=== PATIENT | female | born 1975 | race African-American/Black ===

== ENCOUNTER 2017-10-07 09:20 | Emergency (ER) | payer SELFPAY ==
[2017-10-07 09:26] VITALS: BP 128/73
--- NOTE | 2017-10-07 09:39 | ER Document Report ---
ED Blood Pressure Problem - General Mode of Arrival: Ambulatory Information source: Patient TRAVEL OUTSIDE OF THE [place] IN LAST 30 DAYS: No <MAIKEL SMITH - Last Filed: 10/07/17 09:42> <JASON BUTTS - Last Filed: 10/11/17 15:18> - General Chief Complaint: High Blood Pressure Stated Complaint: BLOOD PRESSURE ISSUES Time Seen by Provider: 10/07/17 09:31 Notes: Patient is a 41-year-old female with COPD and DM type II that presents to the emergency department today with complaints of elevated blood pressures. Patient states she was at a mental health appointment yesterday and her blood pressure was 153/111 and she was told "she should get checked out". Patient states [facility]. Patient has never been diagnosed with high blood pressure in the past. Patient mentions "every once in a while" she feels lightheaded. Patient denies any chest pain or shortness of breath. (MAIKEL SMITH) - Related Data Allergies/Adverse Reactions: doxycycline Allergy (Verified 10/07/17 09:29) Past Medical History - General Information source: Patient - Social History Smoking Status: Current Every Day Smoker Cigarette use (# per day): Yes Chew tobacco use (# tins/day): No Frequency of alcohol use: None Drug Abuse: None Lives with: Family Family History: Reviewed & Not Pertinent Patient has suicidal ideation: Yes Patient has homicidal ideation: No Pulmonary Medical History: Reports: Hx COPD Endocrine Medical History: Reports: Hx Diabetes Mellitus Type 2 Surgical Hx: Negative <MAIKEL SMITH - Last Filed: 10/07/17 09:42> Review of Systems - Review of Systems Constitutional: No symptoms reported EENT: No symptoms reported Cardiovascular: See HPI, Lightheaded, Other - Elevated blood pressures Respiratory: No symptoms reported Gastrointestinal: No symptoms reported Genitourinary: No symptoms reported Female Genitourinary: No symptoms reported Musculoskeletal: No symptoms reported Skin: No symptoms reported Hematologic/Lymphatic: No symptoms reported Neurological/Psychological: No symptoms reported -: Yes All other systems reviewed and negative <MAIKEL SMITH - Last Filed: 10/07/17 09:42> Physical Exam <MAIKEL SMITH - Last Filed: 10/07/17 09:42> <JASON BUTTS - Last Filed: 10/11/17 15:18> - Vital signs Vitals: Temp Pulse Resp BP Pulse Ox 98.4 F 75 17 128/73 H 98 10/07/17 09:25 10/07/17 09:25 10/07/17 09:25 10/07/17 09:25 10/07/17 09:25 - Notes Notes: Physical Exam: General: Alert, appears well. HEENT: Normocephalic. Atraumatic. PERRL. Extraocular movements intact. Oropharynx clear. Neck: Supple. Non-tender. Respiratory: No respiratory distress. Clear and equal breath sounds bilaterally. Cardiovascular: Regular rate and rhythm. Abdominal: Obese. Normal Inspection. Non-tender. No distension. Normal Bowel Sounds. Back: Non-tender. No deformity or step off. Extremities: Moves all four extremities. Upper extremities: Normal inspection. Normal ROM. Lower extremities: Normal inspection. No edema. Normal ROM. Neurological: Normal cognition. AAOx4. Normal speech. Psychological: Normal affect. Normal Mood. Skin: Warm. Dry. Normal color. (MAIKEL SMITH) Course <MAIKEL SMITH - Last Filed: 10/07/17 09:42> - EKG Interpretation by Ut EKG shows normal: Sinus rhythm Rate: Normal <JASON BUTTS - Last Filed: 10/11/17 15:18> - Re-evaluation Re-evalutation: 10/07/17 10:09 Patient well-appearing in no acute distress. Elevated glucose. She is unsure of the medication for her diabetes she normally takes but has not been taking it. Patient shows no signs of fevers illnesses her intermittent dizziness is likely due to her hyperglycemia. EKG shows no concerning acute findings. [facility], physical examination, blood draw, and likely will be placed on new diabetic oral medications. Return precautions provided (JASON BUTTS) - Vital Signs Vital signs: Temp Pulse Resp BP Pulse Ox 98.4 F 75 17 128/73 H 98 10/07/17 09:25 10/07/17 09:25 10/07/17 09:25 10/07/17 09:25 10/07/17 09:25 - Laboratory Laboratory results interpreted by me: 10/07/17 10:03 POC Glucose 422 H* - EKG Interpretation by Me Additional EKG results interpreted by me: 10/07/17 10:08 Normal intervals, normal axis, leads I/AVL suggestive of left ventricular hypertrophy (JASON BUTTS) Discharge <MAIKEL SMITH - Last Filed: 10/07/17 09:42> <JASON BUTTS - Last Filed: 10/11/17 15:18> - Discharge Clinical Impression: encouter for concerns of hypertension Condition: Good Disposition: HOME, SELF-CARE [facility] [NO [facility] MD] - Follow up in 3-5 days Scribe Attestation: 10/07/17 10:11 I personally performed the services described documentation, reviewed and edited the documentation which was dictated to describe my presence, and it accurately records my words and actions. 10/11/17 15:18 I personally performed the services described documentation, reviewed and edited the documentation which was dictated to describe my presence, and it accurately records my words and actions. (JASON BUTTS) Scribe Documentation - Scribe Written by Jim:: Jim Sorenson, 10/07/2017 [id number] acting as scribe for :: Bob <MAIKEL SMITH - Last Filed: 10/07/17 09:42>
--- NOTE | 2017-10-07 22:48 | EKG REPORT ---
SEVERITY:- ABNORMAL ECG - SINUS RHYTHM LEFT VENTRICULAR HYPERTROPHY : Confirmed by: Don Kong 07-Oct-2017 22:47:44
== END 2017-10-07 10:17 | disposition home or self-care (01) ==
LOC: ER 09:20
DX: R03.0 Elevated blood-pressure reading, without diagnosis of hypertension (principal); R42 Dizziness and giddiness; E66.9 Obesity, unspecified; J44.9 Chronic obstructive pulmonary disease, unspecified; E11.9 Type 2 diabetes mellitus without complications; Z59.0 Homelessness
CPT/HCPCS: 82962; 93005; 93010; 99284

== ENCOUNTER 2017-10-24 23:54 | Emergency (ER) | payer SELFPAY ==
[2017-10-25 00:14] VITALS: BP 130/73
--- NOTE | 2017-10-25 01:10 | ER Document Report ---
ED General - General Chief Complaint: Leg Pain Stated Complaint: BODY PAIN Time Seen by Provider: 10/25/17 00:47 Mode of Arrival: Ambulatory Information source: Patient Notes: 41-year-old female presented ED for complaint of bilateral leg pain and fatigue after walking for 6 hours today canvassing in [place]. She states she just overdid it and she is fatigued. She states her legs are hurting and it hurts to move. She states she drinks a lot of water every day but today she is just more tired than usual. She states she lives at the [employer] and they take them to campus areas for 6 hours a day and she thinks she walked too fast and to much today. TRAVEL OUTSIDE OF THE [place] IN LAST 30 DAYS: No - HPI Onset: This evening Onset/Duration: Gradual Quality of pain: Achy Severity: Moderate Pain Level: 3 Associated symptoms: Body/muscle aches, Other - And fatigue from walking too much today Exacerbated by: Movement, Walking Relieved by: Denies Similar symptoms previously: Yes Recently seen / treated by doctor: No - Related Data Allergies/Adverse Reactions: doxycycline Allergy (Verified 10/07/17 09:29) Past Medical History - General Information source: Patient - Social History Smoking Status: Current Every Day Smoker Cigarette use (# per day): Yes - 6 cigarettes a day Chew tobacco use (# tins/day): No Smoking Education Provided: Yes - 4 minutes Frequency of alcohol use: None Drug Abuse: None Occupation: [employer] [facility] Lives with: Other - [employer] Family History: Reviewed & Not Pertinent Patient has suicidal ideation: No Patient has homicidal ideation: No - Past Medical History Cardiac Medical History: Reports: Hx Hypercholesterolemia Pulmonary Medical History: Reports: Hx COPD EENT Medical History: Reports: None Neurological Medical History: Reports: None Endocrine Medical History: Reports: Hx Diabetes Mellitus Type 2 Renal/ Medical History: Reports: None Malignancy Medical History: Reports: None GI Medical History: Reports: None Musculoskeltal Medical History: Reports Hx Musculoskeletal Trauma Skin Medical History: Reports None Psychiatric Medical History: Reports: Hx Anxiety, Hx Bipolar Disorder, Hx Dementia, Hx Post Traumatic Stress Disorder Traumatic Medical History: Reports: None Infectious Medical History: Reports: None Past Surgical History: Reports: Hx Hysterectomy, Hx Tubal Ligation Review of Systems - Review of Systems Constitutional: No symptoms reported EENT: No symptoms reported Cardiovascular: No symptoms reported Respiratory: No symptoms reported Gastrointestinal: No symptoms reported Genitourinary: No symptoms reported Female Genitourinary: No symptoms reported Musculoskeletal: Muscle pain, Muscle stiffness Skin: No symptoms reported Hematologic/Lymphatic: No symptoms reported Neurological/Psychological: No symptoms reported -: Yes All other systems reviewed and negative Physical Exam - Vital signs Vitals: Temp Pulse Resp BP Pulse Ox 98.4 F 72 16 130/73 H 99 10/25/17 00:10/25/17 00:10/25/17 00:10/25/17 00:10/25/17 00:09 Interpretation: Normal - General General appearance: Appears well, Alert - HEENT Head: Normocephalic, Atraumatic Eyes: Normal Pupils: PERRL - Respiratory Respiratory status: No respiratory distress Chest status: Nontender Breath sounds: Normal Chest palpation: Normal - Cardiovascular Rhythm: Regular Heart sounds: Normal auscultation Murmur: No - Abdominal Inspection: Normal Distension: No distension Bowel sounds: Normal Tenderness: Nontender Organomegaly: No organomegaly - Back Back: Normal, Nontender - Extremities General upper extremity: Normal inspection, Nontender, Normal color, Normal ROM , Normal temperature General lower extremity: Normal inspection, Nontender, Normal color, Normal ROM , Normal temperature, Normal weight bearing. No: Cari's sign Hip: Tender Thigh: Tender Knee: Tender, Pain with ROM. No: Abrasion, Deformity, Dislocation, Drawer's test instability, Ecchymosis, Instability, Laceration, Laxity with valgus stress , Laxity with varus stress, Patellar tendon intact, Popliteal fossa tender, Tender joint line, Unable to bear weight Calf: Tender. No: Abrasion, Deformity, Ecchymosis, Instability, Laceration, Unable to bear weight Ankle: Tender. No: Abrasion, Deformity, Ecchymosis, Edema, Instability, Limited ROM, Positive Jarquin's test, Unable to bear weight Foot: Tender, No evidence of FB. No: Nontender, Abrasion, Deformity, Ecchymosis , Edema, Instability, Metatarsal compress. pain, Nail injury, Navicular tenderness, Puncture wound, Tender 5th metatarsal, Unable to bear weight - Neurological Neuro grossly intact: Yes Cognition: Normal Orientation: AAOx4 Varnell Coma Scale Eye Opening: Spontaneous You Coma Scale Verbal: Oriented You Coma Scale Motor: Obeys Commands You Coma Scale Total: 15 Speech: Normal Motor strength normal: LUE, RUE, LLE, RLE Sensory: Normal - Psychological Associated symptoms: Normal affect, Normal mood - Skin Skin Temperature: Warm Skin Moisture: Dry Skin Color: Normal Course - Re-evaluation Re-evalutation: 10/25/17 02:38 Urine was discussed with patient patient was instructed to increase her fluid intake, to drink at least 2 bottles of G2 Gatorade tomorrow to decrease her sugar intake. Patient was instructed to follow-up with her primary care at [facility]. Patient to stick to her diabetic diet. Patient to be sure she is well-hydrated when she does her canvasing. Patient is able to verbalize understanding of instructions and agreement with treatment plan. - Vital Signs Vital signs: Temp Pulse Resp BP Pulse Ox 98.4 F 72 16 130/73 H 99 10/25/17 00:09 10/25/17 00:09 10/25/17 00:09 10/25/17 00:09 10/25/17 00:09 - Laboratory Laboratory results interpreted by me: 10/25/17 01:10 Urine Glucose (UA) >=500 H Urine Ascorbic Acid 20 H Discharge - Discharge Clinical Impression: Leg pain Qualifiers: Laterality: right Qualified Code(s): M79.604 - Pain in right leg Condition: Stable Disposition: HOME, SELF-CARE Additional Instructions: Leg Pain, Nonspecific We did not find an obvious cause for your leg pain. There's no sign of blood clot, infection, or other serious disease. Possible causes of vague leg pain include muscle or joint inflammation, disc disease in the lower back, pressure on the nerves in the back, or reduced blood flow through the arteries of the leg. Rest the leg. Pain can be eased with an antiinflammatory pain medicine such as ibuprofen. If the pain involves a small area, a heating pad might help. Call the doctor or return if the leg becomes swollen, weak, discolored, or increasingly painful, or if you develop any other significant change in your health. Have a history of diabetes and your sugar is 305. Please be aware of your diabetic diet and eat the foods you have been instructed to eat. Please use your insulin as ordered. Please drink 8-10 glasses of water a day and more when you are out canvassing. You have instructed to drink at least 2 bottles of Gatorade G2 tomorrow due to your leg cramps and your blood sugar tonight. These call the [facility] tomorrow and schedule an appointment to follow-up for your diabetes. FOLLOW-UP CARE: If you have been referred to a physician for follow-up care, call the physician s office for an appointment as you were instructed or within the next two days. If you experience worsening or a significant change in your symptoms, notify the physician immediately or return to the Emergency Department at any time for re-evaluation. Forms: Elevated Blood Pressure, Return to Work Referrals: [facility] [Provider Group] - Follow up as needed
[2017-10-25 01:46] LABS: APPEARANCE,URINE CLEAR; BILIRUBIN,URINE NEGATIVE (NEGATIVE); COLOR,URINE STRAW; GLUCOSE, URINE >=500 mg/dL (NEGATIVE); KETONES,URINE NEGATIVE (NEGATIVE); LEUKOCYTE ESTERASE,URINE NEGATIVE (NEGATIVE); NITRITE,URINE NEGATIVE (NEGATIVE); PROTEIN,URINE NEGATIVE (NEGATIVE); UROBILINOGEN,URINE NEGATIVE mg/dL (<2.0)
[2017-10-25] MEDS ORDERED: IBUPROFEN 600 MG TABLET PO ONE (02:46)
== END 2017-10-25 02:51 | disposition home or self-care (01) ==
LOC: ER 23:54
DX: M79.1 Myalgia (principal); R53.83 Other fatigue; J44.9 Chronic obstructive pulmonary disease, unspecified; E11.9 Type 2 diabetes mellitus without complications; F17.210 Nicotine dependence, cigarettes, uncomplicated; Z71.6 Tobacco abuse counseling; Z88.1 Allergy status to other antibiotic agents
CPT/HCPCS: 81001; 82962; 99283; 99406

== ENCOUNTER 2018-07-31 16:51 | Emergency (ER) | payer SELFPAY ==
[2018-07-31 17:30] VITALS: BP 113/90
--- NOTE | 2018-07-31 17:49 | ER Document Report ---
ED Medical Screen (RME) - General Chief Complaint: Flank Pain Stated Complaint: FLANK PAIN Time Seen by Provider: 07/31/18 17:36 TRAVEL OUTSIDE OF THE [place] IN LAST 30 DAYS: No - HPI Notes: 07/31/18 17:44 Patient is a 42-year-old female with history of COPD and diabetes who presents complaining of left mid and left upper abdominal pain that is been ongoing for the past 2-3 days. Patient states that she was seen at a different ER in [place] and was told that she had an inflamed large intestine and has had continued pain, but is not sure exactly what is going on and wanted another evaluation. She still able to eat and drink, but does have a decreased p.o. intake. She is urinating normally. Last bowel movement was 2-3 days ago which is not uncommon for her. Patient states that she had a negative test and states that she does not want another one as she had a partial hysterectomy performed years ago. Denies FAJARDO, fever, neck pain, URI, CP, SOB, or rash. I have treated and performed a rapid initial assessment of this patient. A comprehensive ED assessment and evaluation of the patient, analysis of test results and completion of medical decision making process will be conducted by additional ED providers. I will defer any imaging to the next provider that can perform a more thorough evaluation in an exam room. PHYSICAL EXAMINATION: GENERAL: Well-appearing, well-nourished and in no acute distress. A&Ox4. Answers questions appropriately. LUNGS: Breath sounds clear to auscultation bilaterally and equal. No wheezes rales or rhonchi. HEART: Regular rate and rhythm without murmurs, rubs, gallops. ABDOMEN: Soft, nondistended abdomen. No guarding, no rebound. Normal bowel sounds present. No CVA tenderness bilaterally. + mid/left abd tenderness (cannot elicit thorough abd exam w/o table, however). Extremities: No cyanosis, clubbing, or edema b/l. NEUROLOGICAL: Normal speech, normal gait. PSYCH: Normal mood, normal affect. - Related Data Allergies/Adverse Reactions: doxycycline Allergy (Verified 07/31/18 16:54) Past Medical History - Past Medical History Cardiac Medical History: Reports: Hx Hypercholesterolemia Pulmonary Medical History: Reports: Hx COPD Endocrine Medical History: Reports: Hx Diabetes Mellitus Type 2 Renal/ Medical History: Denies: Hx Peritoneal Dialysis Musculoskeltal Medical History: Reports Hx Musculoskeletal Trauma Psychiatric Medical History: Reports: Hx Anxiety, Hx Bipolar Disorder, Hx Dementia, Hx Post Traumatic Stress Disorder Past Surgical History: Reports: Hx Hysterectomy, Hx Tubal Ligation Physical Exam - Vital signs Vitals: Temp Pulse Resp BP Pulse Ox 98.5 F 92 16 113/90 H 96 07/31/18 17:27 07/31/18 17:27 07/31/18 17:27 07/31/18 17:27 07/31/18 17:27 Course - Vital Signs Vital signs: Temp Pulse Resp BP Pulse Ox 98.5 F 92 16 113/90 H 96 07/31/18 17:27 07/31/18 17:27 07/31/18 17:27 07/31/18 17:27 07/31/18 17:27
[2018-07-31 18:48] LABS: APPEARANCE,URINE SLIGHTLY-CLOUDY; BILIRUBIN,URINE NEGATIVE (NEGATIVE); COLOR,URINE YELLOW; GLUCOSE, URINE >=500 mg/dL (NEGATIVE); KETONES,URINE NEGATIVE (NEGATIVE); LEUKOCYTE ESTERASE,URINE NEGATIVE (NEGATIVE); NITRITE,URINE NEGATIVE (NEGATIVE); PROTEIN,URINE NEGATIVE (NEGATIVE); URINE SPECIFIC GRAVITY 1.031; UROBILINOGEN,URINE NEGATIVE mg/dL (<2.0)
[2018-07-31 18:50] LABS: ABSOLUTE BASOPHILS # (AUTO) 0.1 10^3/uL (0.0-0.2); ABSOLUTE EOSINOPHILS # (AUTO) 0.1 10^3/uL (0.0-0.6); ABSOLUTE LYMPHOCYTES (AUTO) 2.2 10^3/uL (0.5-4.7); ABSOLUTE MONOCYTES (AUTO) 0.5 10^3/uL (0.1-1.4); ABSOLUTE NEUT (AUTO) 5.2 10^3/uL (1.7-8.2); BASOPHILS % (AUTO) 0.6 % (0-2); EOSINOPHILS % (AUTO) 0.8 % (0-6); HEMATOCRIT 43.2 % (36.0-47.0); LYMPHOCYTES % (AUTO) 27.9 % (13-45); MEAN CORPUSCULAR HEMOGLOBIN 31.3 pg (27.0-33.4); MEAN CORPUSCULAR HGB CONC 34.8 g/dL (32.0-36.0); MEAN CORPUSCULAR VOLUME 90 fl (80-97); MONOCYTES % (AUTO) 6.1 % (3-13); PLATELET COUNT 201 10^3/uL (150-450); RED BLOOD COUNT 4.81 10^6/uL (3.72-5.28); RED CELL DISTRIBUTION WIDTH 12.8 % (11.5-14.0); SEGMENTED NEUTROPHILS % (AUTO) 64.6 % (42-78); TOTAL CELLS COUNTED % (AUTO) 100 %
[2018-07-31 19:01] LABS: ALANINE AMINOTRANSFERASE 17 U/L (9-52); ALBUMIN 4.1 g/dL (3.5-5.0); ALKALINE PHOSPHATASE 113 U/L (38-126); ANION GAP 9 (5-19); ASPARTATE AMINO TRANSFERASE 11 U/L (14-36); BILIRUBIN,DIRECT 0.2 mg/dL (0.0-0.4); BILIRUBIN,TOTAL 0.3 mg/dL (0.2-1.3); BLOOD UREA NITROGEN 18 mg/dL (7-20); CARBON DIOXIDE 22 mmol/L (22-30); CHLORIDE 105 mmol/L (98-107); LIPASE 46.9 U/L (23-300); POTASSIUM 4.4 mmol/L (3.6-5.0); SODIUM 136.1 mmol/L (137-145); TOTAL PROTEIN 7.4 g/dL (6.3-8.2)
[2018-07-31 19:28] LABS: GLUCOSE 425 mg/dL (75-110)
[2018-07-31] MEDS ORDERED: INSULIN REG, HUMAN 100 UNIT/ML 3 ML VIAL (PYX) SUBCUT ONE (21:27)
--- NOTE | 2018-07-31 21:28 | ER Document Report ---
ED General - General Chief Complaint: Flank Pain Stated Complaint: FLANK PAIN Time Seen by Provider: 07/31/18 17:36 Notes: Patient is a 42-year-old female with a past medical history of diabetes, obesity, hypertension, not currently receiving therapy for any of these chronic medical problems who presents with 48 hours of abdominal pain, flank pain with associated diarrhea and nausea. Patient states that she was seen in the emergency room in [place], diagnosed with a colitis, started on ciprofloxacin and metronidazole but has not yet had resolution of her symptoms after taking 4 total doses. States that nothing seems to worsen her symptoms. Does describe the pain as a moderate to severe cramping, generalized abdominal discomfort. No history of similar symptoms in the past. Has not had melena, hematochezia or fever. Has been able to tolerate oral intake. TRAVEL OUTSIDE OF THE [place] IN LAST 30 DAYS: No - Related Data Allergies/Adverse Reactions: doxycycline Allergy (Verified 07/31/18 16:54) Past Medical History - General Information source: Patient - Social History Smoking Status: Never Smoker Frequency of alcohol use: None Drug Abuse: None Lives with: Family Family History: Reviewed & Not Pertinent Patient has suicidal ideation: No Patient has homicidal ideation: No - Past Medical History Cardiac Medical History: Reports: Hx Hypercholesterolemia Pulmonary Medical History: Reports: Hx COPD Endocrine Medical History: Reports: Hx Diabetes Mellitus Type 2 Renal/ Medical History: Denies: Hx Peritoneal Dialysis Musculoskeletal Medical History: Reports Hx Musculoskeletal Trauma Psychiatric Medical History: Reports: Hx Anxiety, Hx Bipolar Disorder, Hx Dementia, Hx Post Traumatic Stress Disorder Past Surgical History: Reports: Hx Hysterectomy, Hx Tubal Ligation Review of Systems - Review of Systems Notes: Constitutional: Negative for fever. HENT: Negative for sore throat. Eyes: Negative for visual changes. Cardiovascular: Negative for chest pain. Respiratory: Negative for shortness of breath. Gastrointestinal: Positive abdominal pain, diarrhea Genitourinary: Negative for dysuria. Musculoskeletal: Negative for back pain. Skin: Negative for rash. Neurological: Negative for headaches, weakness or numbness. 10 point ROS negative except as marked above and in HPI. Physical Exam - Vital signs Vitals: Temp Pulse Resp BP Pulse Ox 98.5 F 92 16 113/90 H 96 07/31/18 17:27 07/31/18 17:27 07/31/18 17:27 07/31/18 17:27 07/31/18 17:27 Interpretation: Normal Notes: PHYSICAL EXAMINATION: GENERAL: Well-appearing, well-nourished and in no acute distress. HEAD: Atraumatic, normocephalic. EYES: Pupils equal round and reactive to light, extraocular movements intact, sclera anicteric, conjunctiva are normal. ENT: nares patent, oropharynx clear without exudates. Moist mucous membranes. NECK: Normal range of motion, supple without lymphadenopathy LUNGS: Breath sounds clear to auscultation bilaterally and equal. No wheezes rales or rhonchi. HEART: Regular rate and rhythm without murmurs ABDOMEN: Soft, mild diffuse abdominal tenderness without localization, normoactive bowel sounds. No guarding, no rebound. No masses appreciated. EXTREMITIES: Normal range of motion, no pitting or edema. No cyanosis. NEUROLOGICAL: No focal neurological deficits. Moves all extremities spontaneously and on command. PSYCH: Normal mood, normal affect. SKIN: Warm, Dry, normal turgor, no rashes or lesions noted. Course - Re-evaluation Re-evalutation: 07/31/18 21:27 Patient presents with reports that she was diagnosed with a colitis of the large intestine 2 days ago, started on Cipro and Flagyl but has not had improvement. On exam patient is globally tender to the epigastric, left upper quadrant and left lower quadrant without rebound or guarding. Major the abdominal exam is otherwise very benign. Patient reports that she was told "I might have cancer" and is very concerned about this although her presentation would be inconsistent with this diagnosis. Labs unremarkable with exception of hyperglycemia and patient has a known history of diabetes, not currently on any treatment as she does not have primary care. Will obtain CT scan of the abdomen pelvis to further evaluate for consideration of the colitis versus mass lesion. I suspect the patient has simply not had enough time for antibiotics to treat for possible bacterial colitis versus she may actually have an autoimmune inflammatory bowel disease such as Crohn's or ulcerative colitis. 07/31/18 23:13 CT scan of the abdomen pelvis is unremarkable without any evidence of residual colitis or any other acute findings. I advised the patient to follow-up with her primary care doctor regarding control of her hyperglycemia. I have advised continued following of the previous for eScription's for antibiotics given that she did have demonstrated colitis on previous CT scan. At this time will discharge with return precautions and follow-up recommendations. Verbal discharge instructions given a the bedside and opportunity for questions given. Medication warnings reviewed. Patient is in agreement with this plan and has verbalized understanding of return precautions and the need for primary care follow-up in the next 24-72 hours. - Vital Signs Vital signs: Temp Pulse Resp BP Pulse Ox 98.5 F 92 16 113/90 H 96 07/31/18 17:27 07/31/18 17:27 07/31/18 17:27 07/31/18 17:27 07/31/18 17:27 - Laboratory Result Diagrams: 07/31/18 18:00 07/31/18 18:00 Laboratory results interpreted by me: 07/31/18 07/31/18 18:00 18:00 Sodium 136.1 L Glucose 425 H* AST 11 L Urine Glucose (UA) >=500 H - Diagnostic Test Radiology reviewed: Reports reviewed Discharge - Discharge Clinical Impression: Nausea, Generalized abdominal pain Hyperglycemia due to type 2 diabetes mellitus Qualifiers: Diabetes mellitus roasterman insulin use: unspecified roasterman insulin use status Qualified Code(s): E11.65 - Type 2 diabetes mellitus with hyperglycemia Condition: Good Disposition: HOME, SELF-CARE Additional Instructions: Your CT scan does not show any ongoing inflammation or evidence of cancer. Please continue to take the antibiotics that were previously prescribed. You have been given Levsin to use as needed for abdominal cramping and spasming. Zofran as needed for nausea and vomiting. You need to follow-up with your primary care doctor regarding her high blood sugars. Return if you develop fever of greater than 100.4 F, persistent vomiting, worsening pain, began passing blood in your stool, pass out or have any other symptoms that are worrisome to you. Prescriptions: Hyoscyamine Sulfate [Levsin 0.125 Tablet] 0.125 mg PO TID PRN #30 tablet PRN Reason:
--- NOTE | 2018-07-31 21:46 | RADIOLOGY REPORT (SQ) ---
EXAM DESCRIPTION: CT ABDOMEN PELVIS WITH IV CONTRAST COMPLETED DATE/TME: 07/31/2018 20:30 CLINICAL HISTORY: 42 years, Female, ab pain, ?colitis COMPARISON: None. TECHNIQUE: Contrast enhanced CT of the abdomen/pelvis was performed. Coronal and sagittal reformations were created. Images stored on PACS. All CT scanners at this facility use dose modulation, iterative reconstruction, and/or weight based dosing when appropriate to reduce radiation dose to as low as reasonably achievable (ALARA). [facility]: Dose Right [facility]: CareDose [facility]: Dose Right [facility]: Teradose 4D [facility]: [employer] LIMITATIONS: None. FINDINGS: Limited evaluation of the lower chest reveals clear lung bases. Visualized portions of the liver, spleen, pancreas, gallbladder, and both adrenal glands appear normal. Both kidneys enhance symmetrically. There is no hydronephrosis or hydroureter. Urinary bladder is well distended and shows no suspicious abnormality. Uterus shows no suspicious abnormality. A small corpus luteal cyst is noted about the left ovary. In addition, there is a functional cyst within the right ovary measuring 2.2 x 2.1 cm in size. Both are benign without follow-up necessary. The small and large bowel appear normal in caliber without areas of focal wall thickening. There is no evidence of bowel obstruction. The appendix is normal in caliber though there is likely appendicolith within the appendiceal tip. Vascular structures opacify with contrast normally. No suspicious lymphadenopathy or drainable fluid collections are appreciated. Bone windows show no destructive osseous lesions. IMPRESSION: No acute abnormality within the abdomen or pelvis. TECHNICAL DOCUMENTATION: Quality ID # [id number]: Final reports with documentation of one or more dose reduction techniques (e.g., Automated exposure control, adjustment of the mA and/or kV according to patient size, use of iterative reconstruction technique) copyright 2010 [employer]- All Rights Reserved
[2018-07-31] MEDS ORDERED: HYOSCYAMINE SULFATE 0.125 MG TABLET PO ONE (23:14)
[2018-07-31] MEDS ORDERED: ONDANSETRON ODT 4 MG TAB (6 TAB/ER DISP) PO PRN (23:14)
== END 2018-07-31 23:26 | disposition home or self-care (01) ==
LOC: ER 16:51
DX: R10.84 Generalized abdominal pain (principal); E11.65 Type 2 diabetes mellitus with hyperglycemia; R11.0 Nausea; R19.7 Diarrhea, unspecified; I10 Essential (primary) hypertension; E66.9 Obesity, unspecified; J44.9 Chronic obstructive pulmonary disease, unspecified
CPT/HCPCS: 99284; 36415; 87086; 83690; 85025; 80053; 81001; 74177; J1815

== ENCOUNTER 2018-10-02 11:15 | Emergency (ER) | payer SELFPAY ==
--- NOTE | 2018-10-02 11:42 | ER Document Report ---
ED Medical Screen (RME) - General Chief Complaint: Eye Pain Stated Complaint: EYE SIGHT ISSUE Time Seen by Provider: 10/02/18 11:34 Mode of Arrival: Ambulatory Information source: Patient Notes: Patient is 42-year-old female with a history of genital herpes who presents to the ER today because she is concerned that she may have got herpes in her eye today. Patient was masturbating this morning and was not getting any "satisfaction" so she stopped and then without thinking rubbed her left eye. Patient is concerned because she started having burning and irritation to the left eye afterwards. As an aside patient is also concerned about her sugar today, she is a diabetic and states that she does not have any insurance so she has been buying insulin [id number] and giving herself 50 units of Humulin in and 1 dose daily, 1 time a day. She has not done this in about 1 week. She has no idea if this is the correct amount of insulin she should be giving herself. TRAVEL OUTSIDE OF THE [place] IN LAST 30 DAYS: No - Related Data Allergies/Adverse Reactions: doxycycline Allergy (Verified 07/31/18 16:54) Past Medical History - General Information source: Patient - Past Medical History Cardiac Medical History: Reports: Hx Hypercholesterolemia Pulmonary Medical History: Reports: Hx COPD Endocrine Medical History: Reports: Hx Diabetes Mellitus Type 2 Renal/ Medical History: Denies: Hx Peritoneal Dialysis Musculoskeltal Medical History: Reports Hx Musculoskeletal Trauma Psychiatric Medical History: Reports: Hx Anxiety, Hx Bipolar Disorder, Hx Dementia, Hx Post Traumatic Stress Disorder Past Surgical History: Reports: Hx Hysterectomy, Hx Tubal Ligation Review of Systems - Review of Systems EENT: See HPI Female Genitourinary: See HPI Physical Exam - Vital signs Vitals: Temp Pulse Resp BP Pulse Ox 97.8 F 81 16 151/64 H 99 10/02/18 11:23 10/02/18 11:23 10/02/18 11:23 10/02/18 11:23 10/02/18 11:23 - Notes Notes: PHYSICAL EXAMINATION: GENERAL: Well-appearing and in no acute distress. EYES: Pupils equal round and reactive to light, extraocular movements intact, sclera anicteric, conjunctiva are normal. Course - Vital Signs Vital signs: Temp Pulse Resp BP Pulse Ox 97.8 F 81 16 151/64 H 99 10/02/18 11:23 10/02/18 11:23 10/02/18 11:23 10/02/18 11:23 10/02/18 11:23
[2018-10-02] MEDS ORDERED: TETRACAINE HCL 0.5% OPH SOLN 4 ML OS ONE (14:18)
--- NOTE | 2018-10-02 14:19 | ER Document Report ---
ED Eye Complaint - General Chief Complaint: Eye Pain Stated Complaint: EYE SIGHT ISSUE Time Seen by Provider: 10/02/18 11:34 Primary Care Provider: HARPER BROWN MD [ACTIVE STAFF] - Follow up as needed Mode of Arrival: Ambulatory Information source: Patient Notes: 42-year-old female presented to ED for complaint of pain to her left eye. She states she was masturbating this morning and when it did not give her satisfaction she stopped and then went to sleep. She states when she woke up she rubbed her eye and then had burning and swelling to her eye. She states she was concerned that maybe she had gotten genital herpes in her eye. She states she has a history of genital herpes but does not have any active outbreak at this time. She states she became concerned so she came to the emergency room. TRAVEL OUTSIDE OF THE [place] IN LAST 30 DAYS: No - HPI Onset: This morning Eye location: Left Injury: No Occurred at: Home, Indoors Quality of pain: Burning Pain Level: 3 Associated symptoms: Burning, Itching, Pain - Related Data Allergies/Adverse Reactions: doxycycline Allergy (Verified 07/31/18 16:54) Past Medical History - General Information source: Patient - Social History Smoking Status: Current Every Day Smoker Cigarette use (# per day): Yes - Half pack a day Smoking Education Provided: Yes - 4 minutes Frequency of alcohol use: Occasional Drug Abuse: None Lives with: Alone Family History: Reviewed & Not Pertinent Patient has suicidal ideation: No Patient has homicidal ideation: No - Past Medical History Cardiac Medical History: Reports: Hx Hypercholesterolemia Pulmonary Medical History: Reports: Hx COPD EENT Medical History: Reports: None Neurological Medical History: Reports: None Endocrine Medical History: Reports: Hx Diabetes Mellitus Type 2 Renal/ Medical History: Reports: None Malignancy Medical History: Reports: None GI Medical History: Reports: None Musculoskeletal Medical History: Reports Hx Musculoskeletal Trauma Skin Medical History: Reports None Psychiatric Medical History: Reports: Hx Anxiety, Hx Bipolar Disorder, Hx Dementia, Hx Post Traumatic Stress Disorder Traumatic Medical History: Reports: None Infectious Medical History: Reports: None Past Surgical History: Reports: Hx Hysterectomy, Hx Tubal Ligation Review of Systems - Review of Systems Constitutional: No symptoms reported EENT: Eye pain. denies: Eye discharge, Blurred vision, Tearing, Double vision Cardiovascular: No symptoms reported Respiratory: No symptoms reported Gastrointestinal: No symptoms reported Genitourinary: No symptoms reported Female Genitourinary: No symptoms reported Musculoskeletal: No symptoms reported Skin: No symptoms reported Hematologic/Lymphatic: No symptoms reported Neurological/Psychological: No symptoms reported -: Yes All other systems reviewed and negative Physical Exam - Vital signs Vitals: Temp Pulse Resp BP Pulse Ox 97.8 F 81 16 151/64 H 99 10/02/18 11:23 10/02/18 11:23 10/02/18 11:23 10/02/18 11:23 10/02/18 11:23 Interpretation: Normal - General General appearance: Appears well, Alert - HEENT Head: Normocephalic, Atraumatic Eyes: Normal. No: Periorbital ecchymosis, Periorbital edema, Scleral icterus, Tears Conjunctiva: Normal. No: Purulent discharge Cornea: Normal Eyelashes: Normal Pupils: PERRL Visual acuity- Right eye: 20/100 Visual acuity- Left eye: 20/100 Visual acuity- Both eyes: 20/70 Corrective lenses worn: No Fundascopic: Normal Ears: Normal External canal: Normal Tympanic membrane: Normal Sinus: Normal Nasal: Normal Mouth/Lips: Normal Mucous membranes: Normal Pharynx: Normal Neck: Normal - Respiratory Respiratory status: No respiratory distress Chest status: Nontender Breath sounds: Normal Chest palpation: Normal - Cardiovascular Rhythm: Regular Heart sounds: Normal auscultation Murmur: No - Abdominal Inspection: Normal Distension: No distension Bowel sounds: Normal Tenderness: Nontender Organomegaly: No organomegaly - Back Back: Normal, Nontender - Extremities General upper extremity: Normal inspection, Nontender, Normal color, Normal ROM, Normal temperature General lower extremity: Normal inspection, Nontender, Normal color, Normal ROM, Normal temperature, Normal weight bearing. No: Cari's sign - Neurological Neuro grossly intact: Yes Cognition: Normal Orientation: AAOx4 You Coma Scale Eye Opening: Spontaneous You Coma Scale Verbal: Oriented [place] Coma Scale Motor: Obeys Commands [place] Coma Scale Total: 15 Speech: Normal Motor strength normal: LUE, RUE, LLE, RLE Sensory: Normal - Psychological Associated symptoms: Normal affect, Normal mood - Skin Skin Temperature: Warm Skin Moisture: Dry Skin Color: Normal Course - Vital Signs Vital signs: Temp Pulse Resp BP Pulse Ox 97.5 F 81 15 138/90 H 98 10/02/18 16:08 10/02/18 16:08 10/02/18 16:08 10/02/18 16:08 10/02/18 16:08 - Laboratory Laboratory results interpreted by me: 10/02/18 14:11 POC Glucose 288 H Discharge - Discharge Clinical Impression: Conjunctival irritation Condition: Stable Disposition: HOME, SELF-CARE Instructions: Family Physicians / Practices Additional Instructions: You were seen for irritation to the conjunctive of the left eye that is the white portion of your left eye. You state you rub your eye while you had other body fluids on your hand. There is no signs or symptoms of infection at this time there is no active conjunctivitis. You have been started on Polytrim eyedrops as a precaution. You will need to follow-up with the environmental emergencies planner or eye doctor by telephone to schedule a follow-up appointment. If you develop any redness swelling drainage to the left eye return to the ED until you can follow-up with the environmental emergencies planner on Friday. Please use eyedrops 1 drop to the left eye every 3 hours while awake. EYEDROP USE: Eyedrops are most easily applied by pulling down on the cheek just below the lower eyelid. The lower lid will pop out to form a pouch into which you can drop the medicine. A small brief sting is not unusual, especially if the eye is reddened and irritated already. Use the drops exactly as recommended. You should see the doctor at once if there is a decrease in vision, swelling of the eye, or an increase in discomfort. ANTIBIOTIC THERAPY: You have been given an antibiotic prescription. It's important that you take all the medication, unless instructed otherwise by your physician. Failure to complete the entire course can result in relapse of your condition. Common side effects of antibiotics include nausea, intestinal cramping, or diarrhea. Women may develop vaginal yeast infections, and babies can get yeast (thrush) in the mouth following the use of antibiotics. Contact your physician if you develop significant side effects from this medication. Allergy to this antibiotic can result in hives, wheezing, faintness, or itching. If symptoms of allergy occur, stop the medication and call the doctor. FOLLOW-UP CARE: If you have been referred to a physician for follow-up care, call the physicians office for an appointment as you were instructed or within the next two days. If you experience worsening or a significant change in your symptoms, notify the physician immediately or return to the Emergency Department at any time for re-evaluation. Forms: Elevated Blood Pressure, Smoking Cessation Education Referrals: HARPER BROWN MD [ACTIVE STAFF] - Follow up as needed
[2018-10-02] MEDS ORDERED: TETRACAINE HCL 0.5% OPH SOLN 4 ML ONE (14:20)
[2018-10-02] MEDS ORDERED: POLYMYXIN B SULFATE/TMP OPH SOLN (10 ML/ER DISP) OS SCH (15:56)
[2018-10-02 16:11] VITALS: BP 138/90
[2018-10-02] MEDS ORDERED: POLYMYXIN B SULFATE/TMP OPH SOLN (10 ML/ER DISP) OS ONE (16:30)
== END 2018-10-02 16:20 | disposition home or self-care (01) ==
LOC: ER 11:15
DX: H57.12 Ocular pain, left eye (principal); J44.9 Chronic obstructive pulmonary disease, unspecified; E11.9 Type 2 diabetes mellitus without complications; F17.210 Nicotine dependence, cigarettes, uncomplicated; Z71.6 Tobacco abuse counseling
CPT/HCPCS: 99406; 99283; 82962; J3490